=== PATIENT | male | born 1945 | race Caucasian/White ===

== ENCOUNTER 2020-11-18 14:17 | Emergency (ER) | payer OTHER, BC ==
--- NOTE | 2020-11-18 15:15 | RAD REPORT ---
EXAM DESCRIPTION: [place] Single View11/18/2020 3:05 pm CLINICAL HISTORY: Chest pain COMPARISON: None FINDINGS: The lungs appear clear of acute infiltrate. The heart is mildly enlarged. Postsurgical changes involve the chest. IMPRESSION: No acute abnormalities displayed
[2020-11-18 15:17] LABS: Absolute Lymphocytes (CBC) 1.3 K/uL (0.7-4.9); Basophils % 0.6 % (0-1.3); Hematocrit 45.5 % (39.6-49.0); Lymphocytes % 13.9 % (15.3-44.8); MPV 8.9 fL (7.6-11.3); RBC Red Blood Cell Count 5.25 M/uL (4.33-5.43)
[2020-11-18 15:24] LABS: Protime INR 1.04
[2020-11-18 15:39] LABS: ALT/SGPT 96 U/L (12-78); AST/SGOT 134 U/L (15-37); Alkaline Phosphatase 83 U/L (45-117); BUN Blood Urea Nitrogen 18 mg/dL (7-18); Bicarbonate 30 mmol/L (21-32); Bilirubin Direct 0.9 mg/dL (0-0.2); Bilirubin Total 1.9 mg/dL (0.2-1.0); Glucose Level 134 mg/dL (74-106); Magnesium 2.4 mg/dL (1.8-2.4); NT PRO-BNP 508 pg/mL (<450); Protein, Total 7.3 g/dL (6.4-8.2); Sodium Level 140 mmol/L (136-145); Troponin (Emerg Dept Use Only) < 0.02 ng/mL (0.0-0.045)
--- NOTE | 2020-11-18 16:49 | RAD REPORT ---
EXAM DESCRIPTION: US - Abdomen Exam Limited - 11/18/2020 4:21 pm CLINICAL HISTORY: Abdominal pain. COMPARISON: None. FINDINGS: Multiple gallstones. Gallbladder wall is not thickened The biliary tree is normal caliber. IMPRESSION: Cholelithiasis
--- NOTE | 2020-11-18 17:19 | EDPHYS ---
Physician Documentation [facility] Name: Homero Costello Age: 75 yrs Sex: Male : 1945 Arrival Date: 11/18/2020 Time: : Bed 5 Private MD: ED Physician Isiah Steiner HPI: 11/18 16:42 This 75 yrs old Male presents to ER via Ambulatory with complaints of jr8 Abdominal pain. 16:42 The patient presents with abdominal pain in the epigastric area. Onset: The jr8 symptoms/episode began/occurred gradually. The symptoms do not radiate. Associated signs and symptoms: none. The symptoms are described as stabbing. Modifying factors: The symptoms are alleviated by nothing, the symptoms are aggravated by nothing. Severity of pain: At its worst the pain was moderate in the emergency department the pain is unchanged. The patient has not experienced similar symptoms in the past. The patient has not recently seen a physician. Historical: - Allergies: 14:34 PENICILLINS; tw2 - Home Meds: 14:34 paroxetine HCl 10 mg oral tab 1 tab once daily [Active]; metoprolol tartrate 25 mg Oral tw2 tab 1 tab 2 times per day [Active]; CoQ-10 400 mg oral cap [Active]; Prilosec 20 mg Oral cpDR 1 cap once daily [Active]; Crestor 40 mg oral tab 1 tab once daily [Active]; Multiple Vitamins oral tab [Active]; Fish Oil 1,000 mg oral cap [Active]; aspirin 81 mg Oral chew 1 tab once daily [Active]; Beryl 180 mg Oral tab 1 tab once daily [Active]; magnesium oxide 250 mg Oral tab [Active]; - PMHx: 14:34 Hypertension; tw2 - PSHx: 14:34 Heart Surgery(2016); aortic valve, and decending aortic; tw2 - Immunization history:: Adult Immunizations. - Social history:: Smoking status: . ROS: 16:42 Eyes: Negative for injury, pain, redness, and discharge, ENT: Negative for injury, jr8 pain, and discharge, Neck: Negative for injury, pain, and swelling, Cardiovascular: Negative for chest pain, palpitations, and edema, Respiratory: Negative for shortness of breath, cough, wheezing, and pleuritic chest pain, Back: Negative for injury and pain, MS/Extremity: Negative for injury and deformity, Skin: Negative for injury, rash, and discoloration, Neuro: Negative for headache, weakness, numbness, tingling, and seizure. 16:42 Abdomen/GI: Positive for abdominal pain, Negative for nausea, vomiting, and diarrhea, abdominal cramps, abdominal distension. Exam: 16:42 Constitutional: This is a well developed, well nourished patient who is awake, alert, jr8 and in no acute distress. Chest/axilla: Normal chest wall appearance and motion. Nontender with no deformity. No lesions are appreciated. Cardiovascular: Regular rate and rhythm with a normal S1 and S2. No gallops, murmurs, or rubs. Normal PMI, no JVD. No pulse deficits. Respiratory: Lungs have equal breath sounds bilaterally, clear to auscultation and percussion. No rales, rhonchi or wheezes noted. No increased work of breathing, no retractions or nasal flaring. Abdomen/GI: Soft, non-tender, with normal bowel sounds. No distension or tympany. No guarding or rebound. No evidence of tenderness throughout. Back: No spinal tenderness. No costovertebral tenderness. Full range of motion. Skin: Warm, dry with normal turgor. Normal color with no rashes, no lesions, and no evidence of cellulitis. MS/ Extremity: Pulses equal, no cyanosis. Neurovascular intact. Full, normal range of motion. Neuro: Awake and alert, GCS 15, oriented to person, place, time, and situation. Cranial nerves II-XII grossly intact. Motor strength 5/5 in all extremities. Sensory grossly intact. Cerebellar exam normal. Normal gait. Vital Signs: 14:27 BP 152 / 76; Pulse 75; Resp 17; Temp 97.9(TE); Pulse Ox 99% on R/A; Weight 75.75 kg tw2 (R); Height 5 ft. 11 in. (180.34 cm); Pain 4/10; 15:15 BP 128 / 64; Pulse 67; Resp 19; Pulse Ox 98% on R/A; Pain 4/10; sv 16:47 BP 124 / 73; Pulse 74; Resp 16; Pulse Ox 98% on R/A; sv 14:27 Body Mass Index 23.29 (75.75 kg, 180.34 cm) tw2 MDM: 14:38 Patient medically screened. [facility] 17:20 Data reviewed: vital signs, nurses notes, lab test result(s), EKG, radiologic studies, [facility] plain films, ultrasound. Data interpreted: Pulse oximetry: on room air is 98 %. Interpretation: normal. 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 ED course: Patient with no abdominal pain at rest or with palpation. VS stable. Mild elevation in bili but normal CBD. Recommended f/u with GI. Close return precautions given . 11/18 14:42 Order name: Basic Metabolic Panel [facility] 11/18 14:42 Order name: CBC with Diff [facility] 11/18 14:42 Order name: LFT's [facility] 11/18 14:42 Order name: Magnesium [facility] 11/18 14:42 Order name: NT PRO-BNP [facility] 11/18 14:42 Order name: PT-INR [facility] 11/18 14:42 Order name: Troponin (emerg Dept Use Only) [facility] 11/18 14:57 Order name: Lipase [facility] 11/18 15:27 Order name: CBC with Automated Diff; Complete Time: 15:29 EDMS 11/18 15:40 Order name: Basic Metabolic Panel; Complete Time: 15:51 EDMS 11/18 15:40 Order name: Liver (Hepatic) Function; Complete Time: 15:51 EDMS 11/18 15:40 Order name: Troponin (Emerg Dept Use Only); Complete Time: 15:51 EDMS 11/18 15:40 Order name: NT PRO-BNP; Complete Time: 15:51 EDMS 11/18 15:40 Order name: Magnesium; Complete Time: 15:51 EDMS 11/18 14:42 Order name: XRAY Chest (1 view) [facility] 11/18 14:42 Order name: EKG; Complete Time: 14:43 [facility] 11/18 14:42 Order name: Cardiac monitoring; Complete Time: 15:40 [facility] 11/18 14:42 Order name: EKG - Nurse/Tech; Complete Time: 15:40 [facility] 11/18 14:42 Order name: IV Saline Lock; Complete Time: 15:40 [facility] 11/18 14:42 Order name: Labs collected and sent; Complete Time: 15:40 [facility] 11/18 14:42 Order name: O2 Per Protocol; Complete Time: 15:40 [facility] 11/18 14:42 Order name: O2 Sat Monitoring; Complete Time: 15:40 [facility] 11/18 15:16 Order name: RAD; Complete Time: 15:24 EDNC 11/18 15:43 Order name: Protime (+INR); Complete Time: 15:51 EDMS 11/18 15:53 Order name: US Abdomen Limited jr 11/18 16:50 Order name: US; Complete Time: 16:52 EDMS 11/18 17:04 Order name: Lipase; Complete Time: 17:13 EDMS Administered Medications: No medications were administered Disposition: 17:55 Co-signature as Attending Physician, Isiah Steiner MD. rn Disposition: 11/18/20 17:19 Discharged to Home. Impression: Generalized abdominal pain. - Condition is Stable. - Discharge Instructions: Abdominal Pain, Adult. - Prescriptions for Bentyl 20 mg Oral Tablet - take 1 tablet by ORAL route every 6 hours As needed; 20 tablet. - Medication Reconciliation Form, Thank You Letter, Antibiotic Education, Prescription Opioid Use form. - Follow up: Lance Fang MD; When: 1 week; Reason: Recheck today's complaints, Continuance of care, Re-evaluation by your physician. - Problem is new. - Symptoms have improved. Signatures: Dispatcher [employer] [facility] Isiah Steiner MD MD rn Roszak, Josh, PA PA jr8 Ginger Richey RN RN Marlys Bowen RN RN tw2 Corrections: (The following items were deleted from the chart) 17:51 17:19 11/18/2020 17:19 Discharged to Home. Impression: Generalized abdominal pain. hb Condition is Stable. Forms are Medication Reconciliation Form, Thank You Letter, Antibiotic Education, Prescription Opioid Use. Follow up: Lance Fang; When: 1 week; Reason: Recheck today's complaints, Continuance of care, Re-evaluation by your physician. Problem is new. Symptoms have improved. jr8
--- NOTE | 2020-11-18 17:19 | ER ---
Nurse's Notes [facility] Name: Homero Costello Age: 75 yrs Sex: Male : 1945 Arrival Date: 11/18/2020 Time: 14: Bed 5 Private MD: Diagnosis: Generalized abdominal pain Presentation: 11/18 14:27 Chief complaint: Patient states: about 11 this morning we were at a grocery store, then tw2 all of a sudden i felt really woozy and my stomach was hurting. this was more muscular. but it has been constant since then. nothing changes it, the pain is constantly there. it hasnt gone away. Coronavirus screen: At this time, the client does not indicate any symptoms associated with coronavirus-19. Ebola Screen: Patient denies travel to an Ebola-affected area in the 21 days before illness onset. Initial Sepsis Screen: Does the patient meet any 2 criteria? No. Patient's initial sepsis screen is negative. Does the patient have a suspected source of infection? No. Patient's initial sepsis screen is negative. Risk Assessment: Do you want to hurt yourself or someone else? Patient reports no desire to harm self or others. Onset of symptoms was November 18, 2020. 14:27 Method Of Arrival: Ambulatory tw2 14:27 Acuity: MACARIO 2 tw2 Triage Assessment: 14:34 General: Appears in no apparent distress. slender, well groomed, Behavior is calm, tw2 cooperative, appropriate for age. Pain: Complains of pain in umbilical area, right upper quadrant, left upper quadrant, right lower quadrant and left lower quadrant. Cardiovascular: Denies chest pain. GI: Reports lower abdominal pain, upper abdominal pain. Historical: - Allergies: 14:34 PENICILLINS; tw2 - Home Meds: 14:34 paroxetine HCl 10 mg oral tab 1 tab once daily [Active]; metoprolol tartrate 25 mg Oral tw2 tab 1 tab 2 times per day [Active]; CoQ-10 400 mg oral cap [Active]; Prilosec 20 mg Oral cpDR 1 cap once daily [Active]; Crestor 40 mg oral tab 1 tab once daily [Active]; Multiple Vitamins oral tab [Active]; Fish Oil 1,000 mg oral cap [Active]; aspirin 81 mg Oral chew 1 tab once daily [Active]; Beryl 180 mg Oral tab 1 tab once daily [Active]; magnesium oxide 250 mg Oral tab [Active]; - PMHx: 14:34 Hypertension; tw2 - PSHx: 14:34 Heart Surgery(2016); aortic valve, and decending aortic; tw2 - Immunization history:: Adult Immunizations. - Social history:: Smoking status: . Screenin:40 Abuse screen: Denies threats or abuse. Denies injuries from another. Nutritional hb screening: No deficits noted. Tuberculosis screening: No symptoms or risk factors identified. Fall Risk None identified. Assessment: 14:45 General: Appears in no apparent distress. Behavior is calm, cooperative. hb 14:45 Pain: Pain currently is 4 out of 10 on a pain scale. Neuro: Level of Consciousness is hb awake, alert, obeys commands, Oriented to person, place, time, situation. Cardiovascular: Reports chest pain, Patient's skin is warm and dry. Rhythm is regular. Respiratory: Respiratory effort is even, unlabored, Respiratory pattern is regular, symmetrical. GI: Reports lower abdominal pain, upper abdominal pain. : No signs and/or symptoms were reported regarding the genitourinary system. EENT: No signs and/or symptoms were reported regarding the EENT system. Derm: Skin is pink, warm \T\ dry. Musculoskeletal: No signs and/or symptoms reported regarding the musculoskeletal system. 15:00 General: Appears in no apparent distress. uncomfortable, well groomed, well developed, sv Behavior is calm, cooperative, appropriate for age. Pain: Complains of pain in right lower quadrant and left lower quadrant Pain currently is 4 out of 10 on a pain scale. Pain began 1 hour ago. Is continuous. Neuro: Level of Consciousness is awake, alert, obeys commands, Oriented to person, place, time, situation, Gait is steady, Speech is normal. Neuro: Reports dizziness. Respiratory: Airway is patent Respiratory effort is even, unlabored, Respiratory pattern is regular, symmetrical. GI: Patient currently denies constipation, diarrhea, nausea, vomiting. Derm: Skin is pink, warm \T\ dry. 15:42 Reassessment: Patient appears in no apparent distress at this time. Patient and/or hb family updated on plan of care and expected duration. Pain level reassessed. Patient is alert, oriented x 3, equal unlabored respirations, skin warm/dry/pink. 16:35 Reassessment: Patient appears in no apparent distress at this time. Patient and/or hb family updated on plan of care and expected duration. Pain level reassessed. Patient is alert, oriented x 3, equal unlabored respirations, skin warm/dry/pink. Vital Signs: 14:27 BP 152 / 76; Pulse 75; Resp 17; Temp 97.9(TE); Pulse Ox 99% on R/A; Weight 75.75 kg tw2 (R); Height 5 ft. 11 in. (180.34 cm); Pain 4/10; 15:15 BP 128 / 64; Pulse 67; Resp 19; Pulse Ox 98% on R/A; Pain 4/10; sv 16:47 BP 124 / 73; Pulse 74; Resp 16; Pulse Ox 98% on R/A; sv 14:27 Body Mass Index 23.29 (75.75 kg, 180.34 cm) tw2 ED Course: 14:23 Patient arrived in ED. mr 14:29 Triage completed. tw2 14:34 Arm band placed on. tw2 14:36 Reese Archibald PA is PHCP. jr8 14:36 Isiah Steiner MD is Attending Physician. jr8 14:53 Leticia Evangelista, ECHO is Primary Nurse. sv 15:00 Patient has correct armband on for positive identification. Bed in low position. Call sv light in reach. Adult w/ patient. property assessment monitor on. Pulse ox on. NIBP on. Door closed. Head of bed elevated. 15:00 Inserted saline lock: 20 gauge in right antecubital area, using aseptic technique. sv Blood collected. Flushed right antecubital with 5 ml normal saline. 15:03 EKG done, by ED staff, reviewed by Reese WRIGHT. sv 15:41 Lipase Sent. sv 15:41 XRAY Chest (1 view) Sent. sv 15:41 Troponin (emerg Dept Use Only) Sent. sv 15:41 PT-INR Sent. sv 15:41 NT PRO-BNP Sent. sv 15:41 Magnesium Sent. sv 15:41 LFT's Sent. sv 15:42 CBC with Diff Sent. sv 15:42 Basic Metabolic Panel Sent. sv 16:45 US Abdomen Limited Sent. sv 17:18 Lance Fang MD is Referral Physician. jr8 17:44 No provider procedures requiring assistance completed. IV discontinued, intact, hb bleeding controlled, No redness/swelling at site. Administered Medications: No medications were administered Outcome: 17:19 Discharge ordered by . 8 17:44 Discharged to home ambulatory, with significant other. 17:44 Condition: stable 17:44 Discharge instructions given to patient, significant other, Instructed on discharge instructions, follow up and referral plans. medication usage, Demonstrated understanding of instructions, follow-up care, medications, Prescriptions given X 1. 17:51 Patient left the ED. hb Signatures: Leticia Evangelista RN RN Layla Vail mr Cristela, Reese, PA ADRIANA jr8 Ginger Richey RN RN Marlys Bowen RN RN tw2 Corrections: (The following items were deleted from the chart) 14:35 14:27 Acuity: MACARIO 3 tw2 tw2 15:51 15:42 BP 128 / 64; Pulse 67bpm; Resp 19bpm; Pulse Ox 98% RA; Pain 4/10; hb sv 17:44 14:45 GI: No signs and/or symptoms were reported involving the gastrointestinal system. hb hb
[2020-11-18 18:12] VITALS: TEMP 97.9
[2020-11-18 18:13] VITALS: O2SAT 98
[2020-11-18 18:15] VITALS: BP 124/73
--- NOTE | 2020-11-19 10:34 | EKG ---
Test Date: 2020-11-18 Test Time: 15:03:19 [employer]: SV MEASUREMENT RESULTS: Intervals: Rate: 66 [place]: 154 QRSD: 88 QT: 406 QTc: 425 [place]: P: 61 [place]: 154 QRS: 70 T: 63 INTERPRETIVE STATEMENTS: Normal sinus rhythm Possible Left atrial enlargement Borderline ECG No previous ECG available for comparison Electronically Signed On 11-19-20 10:31:51 CDT by Harley Jones
== END 2020-11-18 17:51 | disposition home or self-care (01) ==
LOC: ER 14:17
DX: R10.84 Generalized abdominal pain (principal); I10 Essential (primary) hypertension; Z88.0 Allergy status to penicillin; Z79.82 Long term (current) use of aspirin
CPT/HCPCS: 36415; 71045; 76705; 80048; 80076; 83690; 83735; 83880; 84484; 85025; 85610; 93005; 99284